=== PATIENT | male | born 1945 | race Caucasian/White ===

== ENCOUNTER 2021-01-22 22:51 | Emergency (ER) | payer MEDICARE, BC ==
[~2021-01-22 22:51] MED LIST: Sodium Chloride 0.9% 1,000 ML IV ONE
[2021-01-22] MEDS: EPINEPHrine 1:10,000 1 MG/10 ML Syringe IVPUSH PRN ×5 (22:57→23:18)
--- NOTE | 2021-01-23 00:20 | EDM.PDOC ---
ED HPI GENERAL MEDICAL PROBLEM - General Chief Complaint: Neuro Symptoms/Deficits Stated Complaint: unresponsive Time Seen by Provider: 01/22/21 23:48 Source of Information: Reports: EMS History Limitations: Reports: Other (non responsive ) - History of Present Illness INITIAL COMMENTS - FREE TEXT/NARRATIVE: presented to the ER with EMD - active CPR. was found on the floor unresponsive by his family. Last time seen was 8pm - was found on the floor around 10p. Also some blood on the back of his head. 911 was called - unresponsive - CPR was started - Related Data Allergies Allergy/AdvReac Type Severity Reaction Status Date / Time No Known Allergies Allergy Verified 06/25/13 00:42 Home Meds: Home Meds Furosemide [Lasix] 40 mg PO DAILY #30 tablet 06/27/13 [Rx] Ipratropium/Albuterol Sulfate [Duoneb 0.5 MG-3 MG/3 ML] 3 ml INH QID PRN 06/30/13 [History] Albuterol [Ventolin HFA] 2 puff INH 07/30/13 [History] Amiodarone [Cordarone] 200 mg PO DAILY 07/30/13 [History] Aspirin [Aspirin EC] 325 mg PO DAILY 07/30/13 [History] Carvedilol [Coreg] 6.25 mg PO BID 07/30/13 [History] Docusate Sodium [Dss] 250 mg PO DAILY 07/30/13 [History] LORazepam [Lorazepam] 0.5 mg PO 07/30/13 [History] Lisinopril 5 mg PO DAILY 07/30/13 [History] Omeprazole 20 mg PO DAILY 07/30/13 [History] Potassium Chloride 10 meq PO DAILY 07/30/13 [History] Spironolactone [Aldactone] 25 mg PO DAILY 07/30/13 [History] atorvaSTATin [Lipitor] 20 mg PO BEDTIME 07/30/13 [History] Past Medical History - Past Health History Medical/Surgical History: Denies Medical/Surgical History ED ROS GENERAL - Review of Systems Review Of Systems: Unable To Obtain Reason Not Obtained: due to patient's condition ED EXAM, CPR - Physical Exam Exam: See Below Limited By: Unresponsive Course - Orders/Labs/Meds Orders: Active Orders 24 hr Category Date Time Status Head wo Cont [CT] Stat Exams 01/22/21 23:51 Taken - Re-Assessments/Exams Free Text/Narrative Re-Assessment/Exam: CPR according to ACLS protocol. intubation using ETT 7.5. IO x2 multiple rounds of chest compressions, IV epi x5 and fluids. Remained unresponsive. Pupil were dilated and fixed. non reactive. clammy and pale in color. after around 30 min of CPR - was announced at 23:23 and family on bed side - were able to say goodbye. CT head was done - showed small posterior ICH. Departure - Departure Time of Disposition: 00:21 Disposition: 20 Preliminary Cause of *Q: Cardiac Arrest Clinical Impression: D.O.A. ( on arrival) - Discharge Information *PRESCRIPTION DRUG MONITORING PROGRAM REVIEWED*: Not Applicable *COPY OF PRESCRIPTION DRUG MONITORING REPORT IN PATIENT ARTHUR: Not Applicable - Problem List & Annotations (1) D.O.A. 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
[2021-01-23] MEDS ORDERED: Sodium Bicarbonate 8.4% 50 MEQ/50 ML Syringe IVPUSH ONE (03:02)
--- NOTE | 2021-01-24 08:25 | CT ---
DATE OF SERVICE: 01/22/21 CLINICAL DATA: Hit Head UNENHANCED BRAIN CT: No priors. There are periventricular lucencies bilaterally, consistent with small vessel ischemic change. There is mild atrophy. No masses or mass effect. No intracranial hemorrhage. No evidence of acute or subacute infarct. No osseous abnormalities. IMPRESSION: No acute intracranial abnormalities. [id number] [facility]
== END 2021-01-22 23:23 | disposition expired ==
LOC: LB.ED 22:51
DX: I46.9 Cardiac arrest, cause unspecified (principal)
CPT/HCPCS: 31500; 36680; 70450; 92950; 99285-25; J0171; J7030